=== PATIENT | female | born 1955 | race Caucasian/White ===

== ENCOUNTER 2023-12-20 15:40 | Emergency (ER) | payer MEDICARE, SELFPAY ==
[2023-12-20 15:43] VITALS: BP 179/98; PULSE 86; RESP 18; O2SAT 97; BMI 22.8
--- NOTE | 2023-12-20 16:21 | ED_ITS ---
HPI - Wound/Laceration General Chief Complaint: Laceration/Wound Stated Complaint: Lac on left hand Time Seen by Provider: 12/20/23 15:45 Source: patient Mode of arrival: ambulatory Limitations: no limitations History of Present Illness HPI narrative: Patient is a 68-year-old female presenting to the emergency department for laceration to her left thenar eminence. She states about 20 minutes prior to arrival she was using a [employer] knife on drywall when she cut her left hand. Denies any other injuries. Denies numbness. Has full range of motion motion of her thumb at this time. No other concerns noted. Last tetanus was 2010. Related Data Previous Rx's Medication Instructions Recorded cephalexin 500 mg capsule 500 mg PO QID #20 caps 12/20/23 Allergies Allergy/AdvReac Type Severity Reaction Status Date / Time amoxicillin Allergy Verified 12/20/23 15:49 Review of Systems Narrative: Pertinent systems reviewed and were negative unless stated HPI Exam Narrative: Exam Narrative: Const: Well-nourished, Well-developed, in mild distress Eyes: PERRL, no conjunctival injection, and symmetrical lids HENT: Atraumatic external nose and ears. Moist mucous membranes. MSK:Extremities w/o deformity, Normal Active ROM Skin: Warm, Dry. 3 cm laceration left thenar eminence Neuro: Normal Muscle tone, No focal neurological deficits. Psych: Awake, Alert, & Oriented x3. Appropriate mood and affect. Const: Vital Signs, click to edit/add: Vital Signs - 24 hr 12/20/23 15:43 Pulse Rate [Right Pulse Oximeter] 86 Respiratory Rate 18 Blood Pressure [Ri ght Upper Arm] 179/98 H Pulse Oximetry 97 Oxygen Delivery Me thod Room Air Course Vital Signs Vital signs: Initial Vital Signs Pulse Rate 86 12/20/23 15:43 Respiratory Rate 18 12/20/23 15:43 Blood Pressure 179/98 H 12/20/23 15:43 Blood Pressure Mean 125 H 12/20/23 15:43 Blood Pressure Position Sitting 12/20/23 15:43 Pulse Oximetry 97 12/20/23 15:43 Oxygen Delivery Method Room Air 12/20/23 15:43 Vital Signs Pulse Rate 86 12/20/23 15:43 Respiratory Rate 18 12/20/23 15:43 Blood Pressure 179/98 H 12/20/23 15:43 Pulse Oximetry 97 12/20/23 15:43 Oxygen Delivery Method Room Air 12/20/23 15:43 Pulse Rate 86 12/20/23 15:43 Respiratory Rate 18 12/20/23 15:43 Blood Pressure 179/98 H 12/20/23 15:43 Pulse Oximetry 97 12/20/23 15:43 Oxygen Delivery Method Room Air 12/20/23 15:43 MDM - Wound/Laceration MDM Narrative Medical decision making narrative: Patient is a 68-year-old female with aspiration to her left thenar eminence. She has full range of motion of left thumb. I do not see any muscle or tendon injury at this time. I was able to get a good view of this. Do not believe imaging is necessary at this time. Laceration repair was completed. See procedure note. Since it is on her hand and is a large laceration I will put on some prophylactic antibiotics. Her allergy is hives to amoxicillin so I and comfortable given her Keflex She is agreeable to this plan. Tetanus was updated. She was discharged. Discharge Plan Discharge Clinical Impression: Laceration Patient Disposition: Home, Self-Care Condition: Stable Instructions: Laceration (ED) Additional Instructions: Follow-up with your primary care provider in the next 7 days to have the 8 sutures removed. For next 6 months, once sutures are removed, whenever you go outside put a dab of sunscreen over the laceration site to improve scar appearance. Topical antibiotics are not necessary at this time. Patient can shower but do not submerge the laceration until sutures are removed Prescriptions: New cephalexin 500 mg capsule 500 mg PO QID Qty: 20 0RF Follow Up/Referrals: Provider,Not a Local [Primary Care Provider] - Stand Alone Forms: [facility] Info Instructions Procedures Laceration Left hand: Name of person performing procedure: Anand Wilks Site: hand (Thenar eminence) Side (If applicable): left Size (cm): 3 Description: linear and clean Depth: simple, single layer Local Anesthetic: lidocaine 1% Amount of anesthesia used (mL): 3 Pre-repair: wound explored, irrigated extensively and deep structures in tact Skin layer closed with: nylon Size (cm): 4-0 Number of sutures: 8 Technique: simple, interrupted
[2023-12-20] MEDS: TETANUS/DIPHTH/PERTUSSIS 0.5 ML SYRINGE IM (16:30)
[2023-12-20 16:49] VITALS: BP 179/98; PULSE 86; RESP 18; TEMP 37.1
--- NOTE | 2023-12-20 17:08 | ED.NURSE ---
Pt called stating [facility] did not have an available pharmacist today and requested Rx be sent to [facility] [address] in [place]. Rx called in to Pharmacy, as requested. [facility] contacted and notified to cancel rx.
== END 2023-12-20 16:50 | disposition home or self-care (01) ==
PROVIDERS: Emergency Provider Student in an Organized Health Care Education/Training Program
DX: S61.412A Laceration without foreign body of left hand, initial encounter (principal); W26.0XXA Contact with knife, initial encounter; Z23 Encounter for immunization
CPT/HCPCS: 12002; 90471; 90715; 99282; 99283